=== PATIENT | female | born 1985 | race Caucasian/White ===

== ENCOUNTER 2018-02-20 12:51 | Emergency (ER) | payer OTHER ==
[~2018-02-20] VITALS: Ht 167.6 cm; Wt 58.0 kg
[2018-02-20 12:58] VITALS: TEMP 36.8; Ht 167.6 cm; Wt 58.0 kg
[2018-02-20] MEDS ORDERED: SODIUM CHLORIDE 0.9% 1000ML 1,000 ML IV STA (13:08)
[2018-02-20] MEDS ORDERED: KETOROLAC TROMETHAMINE 15 MG/ML VIAL IV STA (13:08)
[2018-02-20 13:19] LABS: BASO % 0.3 %; BASO ABS # 0.04 K/uL (0-0.2); EOS % 2.2 %; EOS ABS # 0.26 K/uL (0-0.5); HEMATOCRIT 39.9 % (37-47); HEMOGLOBIN 13.5 g/dL (12.0-16.0); IG# 0.03 K/uL (0.00-0.02); LYMPH % 12.9 %; LYMPH ABS # 1.55 K/uL (1.2-3.4); MEAN CELL VOLUME 92.1 fL (80-100); MEAN CORPUSCULAR HEMOGLOBIN 31.2 pg (25-34); MEAN CORPUSCULAR HGB CONC 33.8 g/dl (32-36); MEAN PLATELET VOLUME 10.9 fL (7.4-10.4); MONO % 7.4 %; MONO ABS # 0.88 K/uL (0.11-0.59); NEUT % 76.9 %; NEUT ABS # 9.21 K/uL (1.4-6.5); PLATELET COUNT 239 K/uL (130-400); RED CELL DISTRIBUTION WIDTH CV 12.9 % (11.5-14.5); RED CELL DISTRIBUTION WIDTH SD 43.6 fL (36.4-46.3); WHITE BLOOD COUNT 11.97 K/uL (4.8-10.8)
[2018-02-20] MEDS ORDERED: ONDANSETRON INJ 2 MG/ML 2 ML VIAL IV STA (13:22)
--- NOTE | 2018-02-20 13:23 | EMERGENCY ROOM VISIT NOTE ---
History First contact with patient: 12:54 (Kathy Corona PA-C) First contact with patient: 12:54 (Pancho López M.D.) Chief Complaint: ABDOMINAL PAIN Stated Complaint: ABDOMINAL PAIN/VOMITING Nursing Triage Summary: pt here with low abd pains x several weeks, pt states much worse this am. pt having some nausea occasionally. no hx of bowel problems. hx of anxiety and depression (Kathy Corona PA-C) History of Present Illness The patient is a 32 year old female who presents to the Emergency Room via EMS with complaints of abdominal pain. Patient states that she has had sharp pains throughout her abdomen all day today. She reports that she woke up around 4 AM with a headache, which is not unusual for her. She felt hungry and ate a banana , then went back to sleep. She woke up 4 hours later and has had abdominal pain since then. She states the pain is sharp and located primarily throughout the lower abdomen. It seemed to be worse on the left side earlier today. She rates the discomfort a 7/10. She has had similar episodes of pain over the last few months, but they do not usually last this long. She states that they normally improve when she lies down, but the pain is not improving today. She was seen 1 week ago by her PCP due to these episodes and they thought she may have IBS. She has been taking laxatives and increasing fiber in her diet without improvement. She reports she had some diarrhea 2 days ago, and her stools are now slightly loose. She does report she occasionally becomes hot and has chills when she is having a bowel movement. She reports a history of depression and anxiety and states that she has been trying to wean off her venlafaxine over the past few weeks. She reports her last menstrual period was at the end of last month but was only for 2 days, which is irregular for her. She is sexually active with her and is not using any control. She reports nausea, but denies vomiting. She denies blood in her stools. She denies abnormal vaginal discharge or urinary symptoms. She denies any history of abdominal surgeries. She does note that the water in the house she rents was tested 1.5 weeks ago and did show E. coli. She has since switched to bottled water for drinking. (Kathy Corona PA-C) Review of Systems A complete 10 point review of systems was reviewed with the patient with pertinent positives and negatives as per history of present illness. All else were negative. (Kathy Corona PA-C) Past Medical/Surgical History Medical Problems: (1) Anxiety and depression (Pancho López M.D.) Social History Smoking Status: Never Smoker Marital Status: Housing Status: lives with family (Kathy Corona PA-C) Current/Historical Medications Scheduled Nortriptyline (Pamelor), 20 MG PO DAILY Ondasetron Odt (Zofran Odt), 4 MG SL Q6H Venlafaxine Hcl (Effexor), 75 MG PO Q2D Venlafaxine Hcl (Effexor), 150 MG PO Q2D Scheduled PRN Dicyclomine Hcl (Bentyl), 10 MG PO TID PRN for Pain Physical Exam Vital Signs Date Time Temp Pulse Resp B/P (MAP) Pulse Ox O2 Delivery O2 Flow Rate FiO2 02/20/18 14:35 88 16 128/81 99 Room Air 02/20/18 12:58 36.8 88 16 130/84 100 Room Air (Pancho López M.D.) Physical Exam VITALS: Vitals are noted on the nurse's note and reviewed by myself. Vital signs stable. GENERAL: This is a 32-year-old female, in no acute distress, slightly anxious appearing well-developed well-nourished. SKIN: The skin was without rashes. EARS: External auditory canals clear, tympanic membranes pearly mojica without erythema or effusion bilaterally. EYES: Pupils equal round and reactive to light and accommodation. MOUTH: Mucous membranes moist. Tonsils are not enlarged. Pharynx without erythema or exudate. HEART: Regular rate and rhythm without murmurs gallops or rubs. LUNGS: Clear to auscultation bilaterally without wheezes, rales or rhonchi. ABDOMEN: Normal contour, no scars or visible masses. Positive bowel sounds x 4. The abdomen is soft and nondistended. There is mild tenderness throughout without any focal tenderness. No organomegaly or masses. No guarding or rebound tenderness. NEURO: Patient was alert and oriented to person place and time. (Kathy Corona PA-C) Medical Decision & Procedures ER Provider Diagnostic Interpretation: PA CHEST RADIOGRAPH AND UPRIGHT AND SUPINE AP RADIOGRAPHS OF THE ABDOMEN CLINICAL HISTORY: Abdominal pain and nausea. COMPARISON STUDY: No previous studies for comparison. FINDINGS: Lung volumes are normal. No pneumothorax or pleural effusion is noted. There is no consolidation or evidence for pulmonary edema. Cardiomediastinal silhouette is normal. There is no free air. The bowel gas pattern is normal. A few faint pelvic calcifications statistically reflect phleboliths. IMPRESSION: 1. No free air or evidence of bowel obstruction. 2. No acute cardiopulmonary findings. (Kathy Corona ., PA-C) Laboratory Results 02/20/18 12:45 Red Blood Count 4.33, Mean Corpuscular Volume 92.1, Mean Corpuscular Hemoglobin 31.2, Mean Corpuscular Hemoglobin Concent 33.8, Mean Platelet Volume 10.9, Neutrophils (%) (Auto) 76.9, Lymphocytes (%) (Auto) 12.9, Monocytes (%) (Auto) 7.4, Eosinophils (%) (Auto) 2.2, Basophils (%) (Auto) 0.3, Neutrophils # (Auto) 9.21, Lymphocytes # (Auto) 1.55, Monocytes # (Auto) 0.88, Eosinophils # (Auto) 0.26, Basophils # (Auto) 0.04 02/20/18 12:45 Test 02/20/18 12:45 02/20/18 13:11 White Blood Count 11.97 K/uL (4.8-10.8) Red Blood Count 4.33 M/uL (4.2-5.4) Hemoglobin 13.5 g/dL (12.0-16.0) Hematocrit 39.9 % (37-47) Mean Corpuscular Volume 92.1 fL (80-100) Mean Corpuscular Hemoglobin 31.2 pg (25-34) Mean Corpuscular Hemoglobin Concent 33.8 g/dl (32-36) Platelet Count 239 K/uL (130-400) Mean Platelet Volume 10.9 fL (7.4-10.4) Neutrophils (%) (Auto) 76.9 % Lymphocytes (%) (Auto) 12.9 % Monocytes (%) (Auto) 7.4 % Eosinophils (%) (Auto) 2.2 % Basophils (%) (Auto) 0.3 % Neutrophils # (Auto) 9.21 K/uL (1.4-6.5) Lymphocytes # (Auto) 1.55 K/uL (1.2-3.4) Monocytes # (Auto) 0.88 K/uL (0.11-0.59) Eosinophils # (Auto) 0.26 K/uL (0-0.5) Basophils # (Auto) 0.04 K/uL (0-0.2) RDW Standard Deviation 43.6 fL (36.4-46.3) RDW Coefficient of Variation 12.9 % (11.5-14.5) Immature Granulocyte % (Auto) 0.3 % Immature Granulocyte # (Auto) 0.03 K/uL (0.00-0.02) Anion Gap 13.0 mmol/L (3-11) Est Creatinine Clear Calc Drug Dose 115.2 ml/min Estimated GFR () 135.6 Estimated GFR (Non- 117.0 BUN/Creatinine Ratio 7.8 (10-20) Calcium Level 8.6 mg/dl (8.5-10.1) Total Bilirubin 0.8 mg/dl (0.2-1) Aspartate Amino Transf (AST/SGOT) 17 U/L (15-37) Alanine Aminotransferase (ALT/SGPT) 21 U/L (12-78) Alkaline Phosphatase 55 U/L (45-117) Total Protein 7.6 gm/dl (6.4-8.2) Albumin 3.9 gm/dl (3.4-5.0) Globulin 3.7 gm/dl (2.5-4.0) Albumin/Globulin Ratio 1.1 (0.9-2) Lipase 119 U/L (73-393) Thyroid Stimulating Hormone (TSH) 1.790 uIu/ml (0.300-4.500) Human Chorionic Gonadotropin, Qual NEG (NEG) Urine Color YELLOW Urine Appearance CLEAR (CLEAR) Urine pH 8.5 (4.5-7.5) Urine Specific [place] 1.013 (1.000-1.030) Urine Protein NEG (NEG) Urine Glucose (UA) NEG (NEG) Urine Ketones 3+ (NEG) Urine Occult Blood NEG (NEG) Urine Nitrite NEG (NEG) Urine Bilirubin NEG (NEG) Urine Urobilinogen NEG (NEG) Urine Leukocyte Esterase NEG (NEG) (Pancho López M.D.) Medications Administered Medications (Trade) Dose Ordered Sig/Nicolas Route Start Time Stop Time Status Last Admin Dose Admin Sodium Chloride 1,000 ml @ 999 mls/hr Q1H1M STAT IV 02/20/18 13:08 02/20/18 14:08 DC 02/20/18 13:08 999 MLS/HR Ketorolac Tromethamine (Toradol Inj) 15 mg NOW STAT IV 02/20/18 13:08 02/20/18 13:11 DC 02/20/18 13:28 15 MG Ondansetron HCl (Zofran Inj) 4 mg NOW STAT IV 02/20/18 13:22 02/20/18 13:23 DC 02/20/18 13:28 4 MG Morphine Sulfate (MoRPHine SULFATE INJ) 4 mg NOW STAT IV 02/20/18 14:01 02/20/18 14:02 DC 02/20/18 14:34 4 MG Dicyclomine HCl (Dicyclomine HCl 10MG Home Pack) 1 ea UD ONCE PO 02/20/18 15:30 02/20/18 15:31 DC 02/20/18 15:39 1 EA (Pancho López M.D.) Medical Decision Differential diagnosis includes IBS, IBD, pelvic pain, ectopic , ovarian cyst, ovarian torsion, gastroenteritis, colitis, appendicitis, cholecystitis, pancreatitis, among others. The patient is a 32-year-old female who presents today complaining of abdominal pain. The patient states this has been ongoing for some time. She has had worsening symptoms today which have not improved. Labs revealed a mild leukocytosis of 11.97. The patient is not anemic. There were no concerning electrolyte abnormalities. Lipase is not elevated. Urinalysis was not suggestive of infection. Serum was negative. Abdominal series was performed and read by radiology with no acute findings. As the symptoms have been ongoing and patient has no focal abdominal pain or other findings, I do not feel there is significant concern for any acute intra-abdominal issues. She was treated with IV Toradol, Zofran and morphine with good relief of her pain. I had a lengthy discussion with the patient regarding the importance of follow-up with her primary care provider. The patient has seen the primary care provider once and apparently did speak with them about a referral to GI. Patient would like to follow-up with GI and she was encouraged to speak with her primary care provider about this. She was given a prescription for Bentyl. The patient's case was reviewed with Dr. López, ED attending physician, who agreed with my assessment and treatment plan. Based on the patient's presentation and work up, I feel the patient is stable for outpatient treatment. The patient was educated to return to the emergency department for any worsening of their current condition or new/concerning symptoms. She will follow up with her PCP and GI. (Kathy Corona PA-C) Medication Reconcilliation Current Medication List: was personally reviewed by me (Kathy Corona PA-C) Blood Pressure Screening Patient's blood pressure: Normal blood pressure (Kathy Corona PA-C) Impression Primary Impression: Generalized abdominal pain Departure Information Dispostion Home / Self-Care Condition GOOD Prescriptions Ondasetron Odt (ZOFRAN ODT) 4 Mg Tab 4 MG SL Q6H for Nausea, #15 TAB Prov: Kathy Corona PA-C 02/20/18 Dicyclomine Hcl (BENTYL) 10 Mg Cap 10 MG PO TID Y for Pain, #15 CAP Prov: Kathy Corona PA-C 02/20/18 Referrals No Doctor, Assigned (PCP) Patient Instructions My [facility] Additional Instructions You have been treated in the Emergency Department for your Abdominal Pain. Laboratory results and imaging studies have ruled out any emergent causes for your abdominal pain which would warrant admission or surgery. You may take Bentyl up to 3 times daily as needed for the abdominal pain/ cramping. You have been prescribed Zofran to be used for any nausea or vomiting. Take as prescribed. For pain control, you can use the following mmyw-kly-luhlleh medicines (if >12 yo): - Regular strength (325mg/tab) Tylenol (acetaminophen) 2 tabs every 4-6 hours as needed. Do not exceed 12 tablets in a 24 hour period. Avoid taking more than 4 grams (4000 mg) of Tylenol per day. This includes any other sources of acetaminophen you may take on a regular basis. - Regular strength (200 mg/tab) Advil (ibuprofen) 1-2 tabs every 4-6 hours as needed. Do not exceed a dose of 3200 mg per day. Drink plenty of water and stay well hydrated. As with any trip to the Emergency Department, you should follow-up with your Primary Care Provider from today's visit. As discussed, you should also consider follow-up with gastroenterology. You may discuss this with your primary care provider. Return to the emergency department if your symptoms persist despite treatment plan outlined above or if the following symptoms occur: Significantly worsening pain, persistent vomiting, fevers, pain localizes to one location, or any other new/concerning symptoms.
[2018-02-20 13:53] LABS: ALBUMIN 3.9 gm/dl (3.4-5.0); CALCIUM 8.6 mg/dl (8.5-10.1); CREATININE 0.63 mg/dl (0.60-1.20); POTASSIUM 3.5 mmol/L (3.5-5.1); TOTAL PROTEIN 7.6 gm/dl (6.4-8.2)
[2018-02-20] MEDS ORDERED: MoRPHine SULFATE 4 MG/ML 1 ML CARP\\VIAL IV STA (14:01)
[2018-02-20 14:35] VITALS: BP 128/81; PULSE 88; O2SAT 99
--- NOTE | 2018-02-20 14:37 | DIAGNOSTIC IMAGING REPORT ---
PA CHEST RADIOGRAPH AND UPRIGHT AND SUPINE AP RADIOGRAPHS OF THE ABDOMEN CLINICAL HISTORY: Abdominal pain and nausea. COMPARISON STUDY: No previous studies for comparison. FINDINGS: Lung volumes are normal. No pneumothorax or pleural effusion is noted. There is no consolidation or evidence for pulmonary edema. Cardiomediastinal silhouette is normal. There is no free air. The bowel gas pattern is normal. A few faint pelvic calcifications statistically reflect phleboliths. IMPRESSION: 1. No free air or evidence of bowel obstruction. 2. No acute cardiopulmonary findings. Electronically signed by: Hiro Yeung M.D. 02/20/2018 2:35 PM Dictated Date/Time: 02/20/2018 2:34 PM
[2018-02-20] MEDS ORDERED: ONDA4TAB10 SL (15:19)
[2018-02-20] MEDS ORDERED: DICY10CA55 PO (15:19)
[2018-02-20] MEDS ORDERED: NORT10CA2 PO (15:27)
[2018-02-20] MEDS ORDERED: VENL75TA4 PO (15:27)
[2018-02-20] MEDS ORDERED: BENTYL HOME PACK 10 MG VIAL PO ONE (15:30)
== END 2018-02-20 15:55 | disposition home or self-care (01) ==
LOC: C.EDC 12:53
DX: R10.84 Generalized abdominal pain (principal); F41.9 Anxiety disorder, unspecified; F32.9 Major depressive disorder, single episode, unspecified